=== PATIENT | female | born 1945 | race Caucasian/White ===

== ENCOUNTER 2022-03-27 01:23 | Day surgery (SDC) | payer MEDICARE, SELFPAY ==
[2022-03-12 13:17] VITALS: BMI 18.5
--- NOTE | 2022-03-26 16:55 | PM.HPGS ---
History of Present Illness History of Present Illness Consent: Risks, benefits, and alternatives have been discussed and questions answered. Patient agrees to proceed with procedure. Chief complaint: positive cologuard Narrative: Kita Arango is a 77 year old female Referred for colon cancer screening. she recently performed a Cologuard test which was positive. Review of Systems Review of Systems: All systems reviewed & are unremarkable except as noted in HPI and below PMFSH Past Medical History Medical History Positive colorectal cancer screening using Cologuard test Surgical History Surgical History Hx of bilateral cataract extraction Family History Family History Unknown Cancer Thyroid disorder Social History Social History Smoking packs per day: 0.5 Smoking cigarettes per day: 10.0 Years smoked: 50 Smoking pack-years: 25.00 Smoking status: Current every day smoker Tobacco type: cigarettes Second hand tobacco smoke exposure: No Additional smoking assessment comments: pt smoking since she was a teenager Alcohol intake: never Substance use: never Living arrangements: alone Gender identity (if verbalized by the patient): Female Spiritual care concerns: No Meds Home Medications and Allergies Home Medications Medication Instructions Recorded Confirmed Type cholecalciferol (vitamin D3) 125 125 mcg PO DAILY 12/27/21 03/12/22 History mcg (5,000 unit) tablet donepezil 5 mg tablet 5 mg PO QHS 12/27/21 03/12/22 History sertraline 25 mg tablet 25 mg PO DAILY 12/27/21 03/12/22 History atorvastatin 20 mg tablet 20 mg PO DAILY #90 tabs 02/08/22 03/12/22 Rx levothyroxine 88 mcg tablet 88 mcg PO DAILY #90 tabs 02/08/22 03/12/22 Rx (Euthyrox) Allergies Allergy/AdvReac Type Severity Reaction Status Date / Time No Known Allergies Allergy Verified 03/27/22 07:26 Exam Const: General: alert Orientation/consciousness: patient oriented x3 Resp: Auscultation: clear to auscultation bilaterally Cardio: Rhythm: regular rhythm GI: GI Palp: Yes Soft to palpation and No Tenderness to palpation present (GI) Neuro: General: patient oriented x3 Assessment and Plan Assessment and plan (1) Positive colorectal cancer screening using Cologuard test: Code(s): R19.5 - Other fecal abnormalities Status: Acute Assessment and Plan: Colonoscopy with possible biopsy or polypectomy or cautery or injection of substances.
[2022-03-27 07:27] VITALS: BP 119/67; PULSE 69; RESP 18; TEMP 36.3; O2SAT 100; BMI 18.2
[2022-03-27] MEDS: LACTATED RINGERS 1,000 ML 150 ML IV CONT (07:40)
--- NOTE | 2022-03-27 08:28 | WPDANESEPPF ---
Anes - Initial Pre Proc Eval Procedure: Operation Date: 03/27/22 08:45 Proposed Procedures p Colonoscopy - Raymundo Valentin MD Date/Time: 03/27/22 08:28 Surgeon: Raymundo Valentin MD Pre Op Diagnosis: positive cologuard Patient Data Age: 77 Gender: F Height: 1.57 m Weight: 45.3 kg Last Vital Signs Temp 97.4 F L 03/27/22 07:27 Pulse 69 03/27/22 07:27 Resp 18 03/27/22 07:27 BP 119/67 03/27/22 07:27 Pulse Ox 100 03/27/22 07:27 O2 Del Method Room Air 03/27/22 07:27 Allergies Allergy/AdvReac Type Severity Reaction Status Date / Time No Known Allergies Allergy Verified 03/27/22 07:26 Home Medications Medication Instructions Recorded Confirmed Type cholecalciferol (vitamin D3) 125 125 mcg PO DAILY 12/27/21 03/12/22 History mcg (5,000 unit) tablet donepezil 5 mg tablet 5 mg PO QHS 12/27/21 03/12/22 History sertraline 25 mg tablet 25 mg PO DAILY 12/27/21 03/12/22 History atorvastatin 20 mg tablet 20 mg PO DAILY #90 tabs 02/08/22 03/12/22 Rx levothyroxine 88 mcg tablet 88 mcg PO DAILY #90 tabs 02/08/22 03/12/22 Rx (Euthyrox) Patient hx anesthesia problems: none Family hx anesthesia problems: none Results Review: All pre-operative results and documents have been reviewed as part of the pre-operative evaluation. [facility] Past Medical History Medical History Positive colorectal cancer screening using Cologuard test Surgical History Surgical History Hx of bilateral cataract extraction Family History Family History Unknown Cancer Thyroid disorder Social History Social History Smoking packs per day: 0.5 Smoking cigarettes per day: 10.0 Years smoked: 50 Smoking pack-years: 25.00 Smoking status: Current every day smoker Tobacco type: cigarettes Second hand tobacco smoke exposure: No Additional smoking assessment comments: pt smoking since she was a teenager Alcohol intake: never Substance use: never Living arrangements: alone Gender identity (if verbalized by the patient): Female Spiritual care concerns: No Anes - Eval Final PreProcedure Day of Procedure 03/27/22 08:28 Patient weight: normal Heart: regular rate and rhythm Lungs: clear to auscultation Airway: Mallampati scale class II Neurological: alert and oriented Last oral intake: >/= 8 hours ASA classification: III Emergent: no Anesthetic plan: proceed Anesthesia type and monitoring: general GIVS and standard monitoring Results Review: All pre-operative results and documents have been reviewed as part of the pre-operative evaluation. Informed Consent: The patient's anesthetic plan and its attendant risks and benefits were discussed with the patient/family/POA. Questions were solicited and answers provided to the satisfaction of the patient/family/POA.
[2022-03-27 09:10] VITALS: BP 125/53; PULSE 58; RESP 14; O2SAT 100
[2022-03-27 09:20] VITALS: BP 116/56; PULSE 59; RESP 18; O2SAT 100
[2022-03-27 09:30] VITALS: BP 107/80; PULSE 58; RESP 17; O2SAT 100
== END 2022-03-27 09:37 | disposition home or self-care (01) ==
PROVIDERS: PCP Internal Medicine; Visit Provider Internal Medicine Gastroenterology
PROC: 0DJD8ZZ Inspection of Lower Intestinal Tract, Via Natural or Artificial Opening Endoscopic (ICD-10-PCS; CPT 45378; principal; 2022-03-27 08:45)
DX: Z12.11 Encounter for screening for malignant neoplasm of colon (principal); K62.1 Rectal polyp; K57.30 Diverticulosis of large intestine without perforation or abscess without bleeding; R19.5 Other fecal abnormalities; F17.210 Nicotine dependence, cigarettes, uncomplicated
CPT/HCPCS: 45380; 88305; J2704; J7120